=== PATIENT | female | born 1955 | race Caucasian/White ===

== ENCOUNTER 2017-05-23 07:00 | Day surgery (SDC) | payer OTHER ==
[~2017-05-23 07:00] MED LIST: ATORVASTATIN CA20 MG PO; BONIVA150 MG PO; DULERA 100 MCG/13 GM IH; GABAPENTIN600 MG PO; LEVAQUIN500 MG PO; OMEPRAZOLE20 MG PO; PERCOCET 10-3251 TAB PO; PROAIR HFA8.5 GM IH; SINGULAIR10 MG PO; VASOTEC10 MG NGT; VASOTEC20 M1 PO; [UNRECOGNIZED DRUG - OTHER] PO
== END 2017-05-23 16:10 | disposition home or self-care (01) ==
LOC: CIR.AMB 07:00
DX: K81.1 Chronic cholecystitis (principal)

== ENCOUNTER 2018-02-22 11:11 | Day surgery (SDC) | payer OTHER | END 2018-02-22 17:20 | disposition home or self-care (01) | LOC: AMB-ENDOS 11:11 | DX: K64.1 Second degree hemorrhoids (principal) ==